=== PATIENT | female | born 1995 | race Caucasian/White ===

== ENCOUNTER → 2018-01-29 | Outpatient (CLI) | payer OTHER | END | disposition home or self-care (01) | LOC: C.PAPS 10:47 | PROVIDERS: ATTEND Family Medicine | DX: Z01.419 Encounter for gynecological examination (general) (routine) without abnormal findings (principal) ==

== ENCOUNTER 2024-05-31 22:01 | Inpatient (IN) ==
[2024-05-31] MEDS ORDERED: LIDOCAINE 1% LOCAL 20 ML VIAL INFIL PRN (22:54)
[2024-05-31] MEDS ORDERED: OXYTOCIN 30 UNITS/NSS 30 UNITS/500 ML BAG IV PRN (22:54)
--- NOTE | 2024-05-31 23:00 | History & Physical Report ---
Date of Service May 31, 2024 Assessment & Plan (1) SROM (spontaneous rupture of membranes): (2) GDM (gestational diabetes mellitus): (3) Obesity affecting : Plan 29 yo G1 at 39 3/7 wga presents w/ srom VSS Fetus cat 2 but reassuring, occ small variable Labor - will allow to walk to see if continues to progress spontaneously once fetus settles down/cat1 strip obtained. If unchanged, pt ameanble to pitocin A1GDM - q4hbg, q2 active GBS neg epidural prn History of Present Illness Chief Complaint: ROM Primary Care Provider: Rosie Merchant, DO 29 yo G1 at 39 3/7 wga presents w/ LOF since 8pm. +FM; denies regular ctx, VB. 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 denies hx stis Allergies Allergy/AdvReac Type Severity Reaction Status Date / Time Cephalosporins Allergy Unknown Verified 05/31/24 22:36 Home Medications Medication Instructions Recorded Confirmed Type blood sugar diagnostic (OneTouch #120 ea 04/29/24 05/25/24 Rx Verio test strips) blood-glucose meter (OneTouch #1 ea 04/29/24 05/25/24 Rx Verio Reflect Meter) lancets 33 gauge (OneTouch Delica #120 ea 04/29/24 05/25/24 Rx Plus Lancet) vitamins no.159-iron 1 tab PO DAILY 05/31/24 05/31/24 History fumarate 28 mg-folic acid 800 mcg tablet ( Vitamin) Patient History Medical History (Updated 05/31/24 @ 22:58 by Renata Yo MD) Oral contraceptive pill surveillance Surgical History History of wisdom tooth extraction Family History (Updated 10/19/23 @ 14:12 by Pippa Sierra RN) Mother Small cell lung cancer Uncle Lymphoma Denies family history of Ovarian cancer Prostate cancer Diabetes Myocardial infarction Breast cancer Colorectal cancer Hypertension Stroke Social History (Updated 10/19/23 @ 14:11 by Pippa Sierra, YOUSUF) Smoking Status: Never smoker Second Hand Exposure: No; Do You Dip or Chew Tobacco: No; Hx Alcohol Use: No Hx Substance Use: No Preferred Language: Maltese Communication Ability: Effective Hearing Ability: Normal Research And Development Specialist Required: No Beliefs That Will Affect Care: None marital status: marital status details: Grupo Ames [phone] Current Living Situation: Spouse Current Living Situation Comment: Lives with spouse and dog current occupational status: employed 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 How many Children do You have: 0 Other Information That Helps Us Care for You: No Feels Safe at Home: Yes Safety Concerns: Feels Safe At This Time Childhood Exposure to Second-Hand Smoke: Yes Dental Care, Regularly: Yes Seatbelt Use: always Sunscreen Use: Yes Assistive Devices: None Physical Exam Genitourinary: OB Exam Abdomen: + vertex and + estimated weight (7-8) Manual OB Exam: + cervical dilation 1 cm, + cervical effacement 70%, + station - 2 and + amniotic fluid (+nitrazine, pooling, ferning) OB Exam Monitor Tracing: + external FHT monitor used, + external uterine monitor used (q6-7) and + category II (150/mod/+accel/occ variables, reassuring) Results & Data Vital Signs (Past 12 Hours) Vital Signs Temp Pulse Resp BP 05/31/24 22:23 98.2 F 20 05/31/24 22:17 81 117/78 Laboratory Results OB Labs: Blood Type O Positive 10/27/23 Antibody Screen NEGATIVE 10/27/23 Hgb 10.5 g/dl (12.0-16.0) L 04/01/24 Hct 31.6 % (37.0-47.0) L 04/01/24 MCV 88.9 fL (80.0-100.0) 10/27/23 Plt Count 314 K/uL (130-400) 10/27/23 Rubella IgG Antibody Immune (Immune) 10/27/23 RPR Nonreactive (Nonreactive) 10/27/23 Treponema pallidum Ab Negative (Negative) 04/01/24 Hep Bs Antigen NON-REACTIVE (NON-REACTIVE) 10/27/23 Hepatitis C Ab (EIA) NON-REACTIVE (NON-REACTIVE) 10/27/23 HIV (1&2) Ag & Ab Conf NON-REACTIVE (NON-REACTIVE) 10/27/23 Glucose 1 Hr 50 gm 139 mg/dl (70-130) H 12/25/23 OB Optional Labs: Chlamydia trachomatis RNA Not Detected (NotDetected) 10/27/23 Neisseria gonorrhoeae RNA Not Detected (NotDetected) 10/27/23 Thyroid Stimulating Hormone (TSH) 2.678 uIu/ml (0.300-4.500) 08/21/23 Labs Reviewed: low risk [facility] nl 16 week 2 hr gtt--[facility] gbs neg Diagnostic Findings 05/20 EFW 55%, ant plac Coding Level of Care Code None Diagnoses SROM (spontaneous rupture of membranes) GDM (gestational diabetes mellitus) O24.419 Obesity affecting O99.210
[2024-05-31 23:32] LABS: Hematocrit (blood only) 34.1 % (37.0-47.0); Hemoglobin 11.6 g/dl (12.0-16.0); Mean Corpuscular Hemoglobin 30.3 pg (25.0-34.0); Mean Platelet Volume 11.7 fL (9.4-12.4); Platelet Count 200 K/uL (130-400); RDW Standard Deviation 45.4 fL (36.4-46.3); Red Blood Count 3.83 M/uL (4.20-5.40); White Blood Count 11.41 K/ul (4.8-10.8)
[2024-06-01] MEDS: LACTATED RINGER'S 1,000 ML IV SCH (02:41)
[2024-06-01] MEDS ORDERED: NALOXONE HCL 0.4 MG/1 ML VIAL/CARP IV PRN (03:13)
[2024-06-01] MEDS ORDERED: BUPIVACAINE 0.25% PF 30 ML VIAL EPI PRN (03:13)
[2024-06-01] MEDS ORDERED: fentaNYL citrate PF 100 MCG/2 ML VIAL EPI PRN (03:13)
[2024-06-01] MEDS ORDERED: ePHEDrine sulfate 50 MG/ML AMP IV PRN (03:13)
[2024-06-01] MEDS ORDERED: diphenhydrAMINE 50 MG/ML VIAL IV PRN (03:13)
[2024-06-01] MEDS ORDERED: SODIUM CHLORIDE 0.9% PF INJ 10 ML VIAL EPI PRN (03:13)
[2024-06-01] MEDS ORDERED: NALOXONE HCL 1 MG in SODIUM CHLORIDE 0.9% 1,000 ML IV PRN (03:13)
[2024-06-01] MEDS ORDERED: ONDANSETRON INJ 2 MG/ML 2 ML VIAL IV PRN (03:13)
[2024-06-01] MEDS ORDERED: LIDOCAINE 2% MPF LOCAL 5 ML VIAL EPI PRN (03:13)
[2024-06-01] MEDS ORDERED: ROPIVACAINE 0.5% PF 5 MG/ML 20 ML VIAL EPI PRN (03:13)
[2024-06-01] MEDS ORDERED: NALBUPHINE HCL INJ 10 MG/ML AMP IV PRN (03:13)
--- NOTE | 2024-06-01 03:16 | Anesthesiology Consultation ---
Date of Service June 01, 2024 Assessment & Plan (1) Encounter for pre-operative examination: Chart Review Chart Review: Patient NOT seen in Pre Admission Testing and Acceptable Risk for Labor Epidural Consults Requested none History Height/Weight Height: 5 ft 2 in Weight: 98.43 kg Allergies Allergy/AdvReac Type Severity Reaction Status Date / Time Cephalosporins Allergy Unknown Verified 05/31/24 22:36 Medications Home Medications Medication Instructions Recorded Confirmed Last Taken blood sugar diagnostic (OneTouch #120 ea 04/29/24 05/25/24 Unknown Verio test strips) blood-glucose meter (OneTouch #1 ea 04/29/24 05/25/24 Unknown Verio Reflect Meter) lancets 33 gauge (OneTouch Delica #120 ea 04/29/24 05/25/24 Unknown Plus Lancet) vitamins no.159-iron 1 tab PO DAILY 05/31/24 05/31/24 05/30/24 20:00 fumarate 28 mg-folic acid 800 mcg tablet ( Vitamin) Past Medical History Medical History (Updated 06/01/24 @ 03:16 by Alfonzo Tapia MD) Encounter for pre-operative examination Obesity affecting GDM (gestational diabetes mellitus) Oral contraceptive pill surveillance Exercise / Class Metabolic Activity II 4-5 Yardwork/Stairs/Walk up hill Past Family History Family History Mother Small cell lung cancer Uncle Lymphoma Denies family history of Ovarian cancer Prostate cancer Diabetes Myocardial infarction Breast cancer Colorectal cancer Hypertension Stroke Past Surgical History Surgical History History of wisdom tooth extraction Past Anesthesia History No Hx of Anesthesia Complications and No Family Hx of Anesthesia Complications Social History Smoking Status: Never smoker Do You Dip or Chew Tobacco: No Hx Alcohol Use: No Alcohol type: beer, wine and hard liquor Hx Substance Use: No Physical Exam Vital Signs Last Vital Signs Temp 36.8 C 06/01/24 01:32 Pulse 86 06/01/24 03:38 Resp 18 06/01/24 01:32 BP 93/58 L 06/01/24 03:38 Pulse Ox 100 06/01/24 03:34 Testing Laboratory Results 05/31/24 23:05 Blood Type Cancelled 05/31/24 23:05 Blood Type O Positive 05/31/24 23:05 Antibody Screen Cancelled 05/31/24 23:05 Antibody Screen NEGATIVE 05/31/24 23:05 06/01/24 01:39 POC Glucose 94
[2024-06-01] MEDS: fentaNYL citrate PF 100 MCG/2 ML VIAL EPI STA (03:40)
[2024-06-01] MEDS: LIDOCAINE 2%/EPINEPHRINE 1:200,000 20 ML PF EPI STA (03:40)
[2024-06-01] MEDS: BUPIVACAINE 0.25% PF 30 ML VIAL EPI STA (03:40)
[2024-06-01] MEDS: SODIUM CHLORIDE 0.9% PF INJ 10 ML VIAL EPI STA (03:41)
[2024-06-01] MEDS: fentANYL 2 MCG/ML BUPIVacaine 0.125%-NSS 100ML BAG EPI PRN (03:50)
[2024-06-01] MEDS: OXYTOCIN 30 UNITS/NSS 30 UNITS/500 ML BAG IV PRN ×2 (04:16→12:14)
[2024-06-01] MEDS: BUPIVACAINE 0.25% PF 30 ML VIAL ONE (04:47)
[2024-06-01] MEDS: SODIUM CHLORIDE 0.9% PF INJ 10 ML VIAL ONE (04:47)
[2024-06-01] MEDS: LIDOCAINE 2%/EPINEPHRINE 1:200,000 20 ML PF ONE (04:47)
[2024-06-01] MEDS: ePHEDrine sulfate 50 MG/ML AMP ONE (04:47)
[2024-06-01] MEDS: fentANYL 2 MCG/ML BUPIVacaine 0.125%-NSS 100ML BAG ONE (04:47)
[2024-06-01] MEDS: fentaNYL citrate PF 100 MCG/2 ML VIAL ONE (04:47)
--- NOTE | 2024-06-01 07:34 | Labor Progress Brief Note ---
Date of Service June 01, 2024 Subjective comfortable w/ epidural Assessment & Plan (1) SROM (spontaneous rupture of membranes): (2) GDM (gestational diabetes mellitus): (3) Obesity affecting : Plan 29 yo G1 at 39 3/7 wga presents w/ srom VSS Fetus cat 1 Labor - pit at 12, good progress. Continue augmentation A1GDM - q4hbg, q2 active GBS neg epidural in place Admission and Anticipated Discharge Date Admission Date: May 31, 2024 Physical Exam Genitourinary: Manual OB Exam: + cervical dilation (4-5), + cervical effacement 70% and + station -2 OB Exam Monitor Tracing: + external FHT monitor used, + external uterine monitor used (a4-6) and + category I (140/mod/+accel/-decel) Results & Data Vital Signs (Past 12 Hours) Vital Signs Temp Pulse Resp BP Pulse Ox 06/01/24 07:29 101 H 99 06/01/24 07:24 99 H 99 06/01/24 07:19 78 98 06/01/24 07:16 79 96/56 L 06/01/24 07:14 80 98 06/01/24 07:09 86 98 06/01/24 07:04 80 99 06/01/24 07:01 86 94/55 L 06/01/24 06:59 73 97 06/01/24 06:54 79 98 06/01/24 06:49 79 98 06/01/24 06:47 78 99/58 L 06/01/24 06:44 81 98 06/01/24 06:39 86 99 06/01/24 06:34 81 98 06/01/24 06:31 84 107/67 06/01/24 06:29 108 H 98 06/01/24 06:24 74 98 06/01/24 06:20 18 06/01/24 06:20 98.8 F 18 06/01/24 06:19 84 99 06/01/24 06:17 88 111/68 06/01/24 06:14 86 98 06/01/24 06:09 85 98 06/01/24 06:04 88 98 06/01/24 06:03 83 110/70 06/01/24 05:59 84 98 06/01/24 05:54 81 98 06/01/24 05:49 92 H 98 06/01/24 05:47 86 117/73 06/01/24 05:44 86 97 06/01/24 05:39 86 98 06/01/24 05:34 83 98 06/01/24 05:31 102 H 102/67 06/01/24 05:29 83 97 06/01/24 05:24 83 97 06/01/24 05:19 89 98 06/01/24 05:16 87 106/67 06/01/24 05:14 78 98 06/01/24 05:09 79 96 06/01/24 05:04 76 97 06/01/24 05:02 84 107/68 06/01/24 04:59 87 97 06/01/24 04:54 89 97 06/01/24 04:49 78 99 06/01/24 04:47 83 106/66 06/01/24 04:44 78 98 06/01/24 04:39 85 97 06/01/24 04:34 82 97 06/01/24 04:31 85 109/65 06/01/24 04:29 77 98 06/01/24 04:24 81 98 06/01/24 04:19 84 100 06/01/24 04:17 79 108/64 06/01/24 04:14 83 99 06/01/24 04:09 84 100 06/01/24 04:04 84 99 06/01/24 04:00 82 109/66 06/01/24 03:59 98.4 F 18 06/01/24 03:59 84 98 06/01/24 03:58 81 109/69 06/01/24 03:56 88 105/70 06/01/24 03:54 88 109/66 98 06/01/24 03:52 84 110/69 06/01/24 03:50 87 109/69 06/01/24 03:49 99 06/01/24 03:49 88 06/01/24 03:49 82 105/68 06/01/24 03:46 86 106/60 06/01/24 03:44 83 104/63 99 06/01/24 03:43 92 H 78/45 L 06/01/24 03:41 95 H 87/51 L 06/01/24 03:39 88 100 06/01/24 03:38 86 93/58 L 06/01/24 03:37 97 H 77/43 L 06/01/24 03:34 90 100 06/01/24 03:29 93 H 100 06/01/24 03:24 90 100 06/01/24 03:19 81 100 06/01/24 03:14 77 100 06/01/24 03:09 79 100 06/01/24 03:04 81 100 06/01/24 02:31 77 113/71 06/01/24 01:32 98.2 F 18 05/31/24 22:23 98.2 F 20 05/31/24 22:17 81 117/78 Coding Level of Care Code None Diagnoses SROM (spontaneous rupture of membranes) GDM (gestational diabetes mellitus) O24.419 Obesity affecting O99.210
--- NOTE | 2024-06-01 09:35 | Labor Progress Brief Note ---
Date of Service June 01, 2024 Subjective comfortable , bloody show Assessment & Plan (1) SROM (spontaneous rupture of membranes): Plan labor down for 30 min and then start pushing. anticipate . fht reassuring with variables with contractions. Admission and Anticipated Discharge Date Admission Date: May 31, 2024 Physical Exam Physical Exam: cx--c/c/+1 toco--q2-3 efm--140s with mod variability, variables with contractions Results & Data Vital Signs (Past 12 Hours) Vital Signs Temp Pulse Resp BP Pulse Ox 06/01/24 09:29 83 100 06/01/24 09:24 86 100 06/01/24 09:19 73 100 06/01/24 09:17 75 98/59 L 06/01/24 09:14 73 100 06/01/24 09:09 72 100 06/01/24 09:04 75 100 06/01/24 09:02 75 85/51 L 06/01/24 08:59 79 100 06/01/24 08:54 80 100 06/01/24 08:49 80 100 06/01/24 08:47 79 90/55 L 06/01/24 08:44 81 100 06/01/24 08:39 86 100 06/01/24 08:34 89 100 06/01/24 08:33 82 114/71 06/01/24 08:29 83 100 06/01/24 08:24 90 100 06/01/24 08:19 82 100 06/01/24 08:16 86 114/72 06/01/24 08:14 82 100 06/01/24 08:09 85 100 06/01/24 08:04 86 100 06/01/24 08:01 83 112/67 06/01/24 08:00 16 06/01/24 08:00 16 06/01/24 07:59 84 99 06/01/24 07:54 93 H 99 06/01/24 07:49 78 99 06/01/24 07:46 80 111/64 06/01/24 07:44 86 99 06/01/24 07:39 83 100 06/01/24 07:34 82 100 06/01/24 07:32 81 118/69 06/01/24 07:29 101 H 99 06/01/24 07:24 99 H 99 06/01/24 07:19 78 98 06/01/24 07:16 79 96/56 L 06/01/24 07:14 80 98 06/01/24 07:09 86 98 06/01/24 07:04 80 99 06/01/24 07:01 86 94/55 L 06/01/24 06:59 73 97 06/01/24 06:54 79 98 06/01/24 06:49 79 98 06/01/24 06:47 78 99/58 L 06/01/24 06:44 81 98 06/01/24 06:39 86 99 06/01/24 06:34 81 98 06/01/24 06:31 84 107/67 06/01/24 06:29 108 H 98 06/01/24 06:24 74 98 06/01/24 06:20 18 06/01/24 06:20 37.1 C 18 06/01/24 06:19 84 99 06/01/24 06:17 88 111/68 06/01/24 06:14 86 98 06/01/24 06:09 85 98 06/01/24 06:04 88 98 06/01/24 06:03 83 110/70 06/01/24 05:59 84 98 06/01/24 05:54 81 98 06/01/24 05:49 92 H 98 06/01/24 05:47 86 117/73 06/01/24 05:44 86 97 06/01/24 05:39 86 98 06/01/24 05:34 83 98 06/01/24 05:31 102 H 102/67 06/01/24 05:29 83 97 06/01/24 05:24 83 97 06/01/24 05:19 89 98 06/01/24 05:16 87 106/67 06/01/24 05:14 78 98 06/01/24 05:09 79 96 06/01/24 05:04 76 97 06/01/24 05:02 84 107/68 06/01/24 04:59 87 97 06/01/24 04:54 89 97 06/01/24 04:49 78 99 06/01/24 04:47 83 106/66 06/01/24 04:44 78 98 06/01/24 04:39 85 97 06/01/24 04:34 82 97 06/01/24 04:31 85 109/65 06/01/24 04:29 77 98 06/01/24 04:24 81 98 06/01/24 04:19 84 100 06/01/24 04:17 79 108/64 06/01/24 04:14 83 99 06/01/24 04:09 84 100 06/01/24 04:04 84 99 06/01/24 04:00 82 109/66 06/01/24 03:59 36.9 C 18 06/01/24 03:59 84 98 06/01/24 03:58 81 109/69 06/01/24 03:56 88 105/70 06/01/24 03:54 88 109/66 98 06/01/24 03:52 84 110/69 06/01/24 03:50 87 109/69 06/01/24 03:49 99 06/01/24 03:49 88 06/01/24 03:49 82 105/68 06/01/24 03:46 86 106/60 06/01/24 03:44 83 104/63 99 06/01/24 03:43 92 H 78/45 L 06/01/24 03:41 95 H 87/51 L 06/01/24 03:39 88 100 06/01/24 03:38 86 93/58 L 06/01/24 03:37 97 H 77/43 L 06/01/24 03:34 90 100 06/01/24 03:29 93 H 100 06/01/24 03:24 90 100 06/01/24 03:19 81 100 06/01/24 03:14 77 100 06/01/24 03:09 79 100 06/01/24 03:04 81 100 06/01/24 02:31 77 113/71 06/01/24 01:32 36.8 C 18 05/31/24 22:23 36.8 C 20 05/31/24 22:17 81 117/78 Coding Level of Care Code None Diagnoses SROM (spontaneous rupture of membranes)
--- NOTE | 2024-06-01 10:49 | Labor Progress Brief Note ---
Date of Service June 01, 2024 Subjective pushing Assessment & Plan (1) SROM (spontaneous rupture of membranes): Plan continue stage 2, good effort, fetus reassuring category two. Admission and Anticipated Discharge Date Admission Date: May 31, 2024 Physical Exam Physical Exam: cx--+1-2 toco-q2-3 efm--150s with mod variability, early/variable with pushing. Results & Data Vital Signs (Past 12 Hours) Vital Signs Temp Pulse Resp BP Pulse Ox 06/01/24 10:44 111 H 100 06/01/24 10:39 108 H 100 06/01/24 10:34 131 H 100 06/01/24 10:31 112 H 94/70 L 06/01/24 10:29 96 H 100 06/01/24 10:24 112 H 100 06/01/24 10:19 104 H 100 06/01/24 10:17 104 H 102/70 06/01/24 10:14 104 H 100 06/01/24 10:09 101 H 100 06/01/24 10:04 95 H 100 06/01/24 10:02 100 H 118/77 06/01/24 10:00 16 06/01/24 10:00 16 06/01/24 09:59 108 H 100 06/01/24 09:54 87 100 06/01/24 09:49 105 H 100 06/01/24 09:44 98 H 100 06/01/24 09:39 98 H 100 06/01/24 09:34 103 H 100 06/01/24 09:33 97 H 98/61 L 06/01/24 09:30 37.1 C 06/01/24 09:29 83 100 06/01/24 09:24 86 100 06/01/24 09:19 73 100 06/01/24 09:17 75 98/59 L 06/01/24 09:14 73 100 06/01/24 09:09 72 100 06/01/24 09:04 75 100 06/01/24 09:02 75 85/51 L 06/01/24 08:59 79 100 06/01/24 08:54 80 100 06/01/24 08:49 80 100 06/01/24 08:47 79 90/55 L 06/01/24 08:44 81 100 06/01/24 08:39 86 100 06/01/24 08:34 89 100 06/01/24 08:33 82 114/71 06/01/24 08:29 83 100 06/01/24 08:24 90 100 06/01/24 08:19 82 100 06/01/24 08:16 86 114/72 06/01/24 08:14 82 100 06/01/24 08:09 85 100 06/01/24 08:04 86 100 06/01/24 08:01 83 112/67 06/01/24 08:00 16 06/01/24 08:00 16 06/01/24 07:59 84 99 06/01/24 07:54 93 H 99 06/01/24 07:49 78 99 06/01/24 07:46 80 111/64 06/01/24 07:44 86 99 06/01/24 07:39 83 100 06/01/24 07:34 82 100 06/01/24 07:32 81 118/69 06/01/24 07:29 101 H 99 06/01/24 07:24 99 H 99 06/01/24 07:19 78 98 06/01/24 07:16 79 96/56 L 06/01/24 07:14 80 98 06/01/24 07:09 86 98 06/01/24 07:04 80 99 06/01/24 07:01 86 94/55 L 06/01/24 06:59 73 97 06/01/24 06:54 79 98 06/01/24 06:49 79 98 06/01/24 06:47 78 99/58 L 06/01/24 06:44 81 98 06/01/24 06:39 86 99 06/01/24 06:34 81 98 06/01/24 06:31 84 107/67 06/01/24 06:29 108 H 98 06/01/24 06:24 74 98 06/01/24 06:20 18 06/01/24 06:20 37.1 C 18 06/01/24 06:19 84 99 06/01/24 06:17 88 111/68 06/01/24 06:14 86 98 06/01/24 06:09 85 98 06/01/24 06:04 88 98 06/01/24 06:03 83 110/70 06/01/24 05:59 84 98 06/01/24 05:54 81 98 06/01/24 05:49 92 H 98 06/01/24 05:47 86 117/73 06/01/24 05:44 86 97 06/01/24 05:39 86 98 06/01/24 05:34 83 98 06/01/24 05:31 102 H 102/67 06/01/24 05:29 83 97 06/01/24 05:24 83 97 06/01/24 05:19 89 98 06/01/24 05:16 87 106/67 06/01/24 05:14 78 98 06/01/24 05:09 79 96 06/01/24 05:04 76 97 06/01/24 05:02 84 107/68 06/01/24 04:59 87 97 06/01/24 04:54 89 97 06/01/24 04:49 78 99 06/01/24 04:47 83 106/66 06/01/24 04:44 78 98 06/01/24 04:39 85 97 06/01/24 04:34 82 97 06/01/24 04:31 85 109/65 06/01/24 04:29 77 98 06/01/24 04:24 81 98 06/01/24 04:19 84 100 06/01/24 04:17 79 108/64 06/01/24 04:14 83 99 06/01/24 04:09 84 100 06/01/24 04:04 84 99 06/01/24 04:00 82 109/66 06/01/24 03:59 36.9 C 18 06/01/24 03:59 84 98 06/01/24 03:58 81 109/69 06/01/24 03:56 88 105/70 06/01/24 03:54 88 109/66 98 06/01/24 03:52 84 110/69 06/01/24 03:50 87 109/69 06/01/24 03:49 99 06/01/24 03:49 88 06/01/24 03:49 82 105/68 06/01/24 03:46 86 106/60 06/01/24 03:44 83 104/63 99 06/01/24 03:43 92 H 78/45 L 06/01/24 03:41 95 H 87/51 L 06/01/24 03:39 88 100 06/01/24 03:38 86 93/58 L 06/01/24 03:37 97 H 77/43 L 06/01/24 03:34 90 100 06/01/24 03:29 93 H 100 06/01/24 03:24 90 100 06/01/24 03:19 81 100 06/01/24 03:14 77 100 06/01/24 03:09 79 100 06/01/24 03:04 81 100 06/01/24 02:31 77 113/71 06/01/24 01:32 36.8 C 18 Coding Level of Care Code None Diagnoses SROM (spontaneous rupture of membranes)
[2024-06-01] MEDS: METHYLERGONOVINE MALEATE 0.2 MG/ML AMP IM STA (11:41)
[2024-06-01] MEDS ORDERED: bisacodyL 10 MG SUPP PR PRN (11:56)
[2024-06-01] MEDS ORDERED: HYDROCORTISONE ACETATE 25 MG SUPP PR PRN (11:56)
--- NOTE | 2024-06-01 12:01 | Delivery Summary ---
Vaginal Delivery Summary Date of Service June 01, 2024 Vaginal Delivery Summary and 3rd Degree LAC Pre-operative Diagnosis: at 39 4/7 weeks srom Post-operative Diagnosis: same shoulder dystocia third degree laceration Procedure: pitocin augmentation third degree laceration and repair QBL: 550 Anesthesia: epidural Procedure: The patient presented to labor and delivery with gross srom. Was allowed to walk and then pitocin was started. She received an epidural. She then progressed to c/c/+1. The patient pushed for around one hour to deliver a viable male in carrie position. A lloose nuchal cord was reduced easily. The head then showed a turtle sign and the a shoulder dystocia was identified. This lasted for less than 30 seconds and was reduced with flattening the bed, Vern maneuver, suprapubic pressure and turning the anterior shoulder to the maternal right. The anterior shoulder delivered and the rest of the body followed quickly. The nose and mouth were again bulb suctioned and the was placed in the maternal abdomen for drying and attention. Cord was clamped and cut at about one minute. Cord blood and segment obtained. Placenta delivered spontaneous, intact with a three vessel cord. Cervix/sulci/rectum were intact. A third degree perineal laceration was repaired in the normal standard fashion--3 sutures of 2-0 vicryl, and then the resultant second degree repaired with 3-0 vicryl. Hemostasis obtained with dilute pitocin and fundal massage, and IM methergine. Apgars were pending at the time of this note. Mother and baby doing well at the end of the delivery. [facility] Vaginal Delivery Charge Delivery Type Details: and 3rd Degree LAC
--- NOTE | 2024-06-01 15:40 | Anesthesia Procedure Note ---
Date of Service June 01, 2024 Anesthesia Post Epidural Note Vital Signs Vital Signs: Temp Pulse Resp BP Pulse Ox 37.1 C 106 H 18 116/61 100 06/01/24 09:30 06/01/24 15:31 06/01/24 11:00 06/01/24 15:31 06/01/24 11:49 Notes Mental Status: alert / awake / arousable Nausea / Vomiting: adequately controlled Pain: adequately controlled Airway Patency, RR, SpO2: stable & adequate BP & HR: stable & adequate Hydration State: stable & adequate Neuraxial Anesthesia: was administered and sensory block is resolving Anesthetic Complications: no major complications apparent and Pt Satisfied with anesthetic care Epidural: Removed without complications and With tip intact
[2024-06-01] MEDS: BENZOCAINE 20% SPRY 85 APPLN/85 GM CAN EXT PRN (16:00)
[2024-06-01] MEDS: IBUPROFEN 600 MG TAB PO PRN (16:03)
[2024-06-01] MEDS: ACETAMINOPHEN 325 MG TAB PO PRN (16:05)
[2024-06-01] MEDS: METHYLERGONOVINE MALEATE 0.2 MG/ML AMP ONE (16:08)
[2024-06-01 17:09] LABS: Hematocrit (blood only) 31.1 % (37.0-47.0); Hemoglobin 10.8 g/dl (12.0-16.0)
[2024-06-01] MEDS: DIPHTHER/TETAN/PERTUS Vaccine (Tdap, Adol/Adult) 0.5mL IM ONE (19:50)
[2024-06-01] MEDS: DOCUSATE SODIUM 100 MG CAP PO SCH (20:14)
--- NOTE | 2024-06-02 05:53 | Obstetrical Progress Note ---
Date of Service June 02, 2024 Assessment & Plan (1) Encounter for care and examination after delivery: Plan Encourage ambulation Encourage breast feeding, formula supplementation Consult as needed Monitor Hgb and symptoms of anemia Pain meds as needed Anticipate DC on 06/03/24 Admission and Anticipated Discharge Date Admission Date: May 31, 2024 Supervising Physician Co-Signing Physician Notes Resident Physician Supervision Note: I interviewed and examined the patient. Discussed with Dr. Faye and agree with findings and plan as documented in the note. Any exceptions or clarifications are listed here: Doing well. Has been able to ambulate. To reg diet. hgb from 10.8 post delivery to 8.7. continue routine ppd 1. Documented By: Pat Gibbons MD, FACOG Subjective Pt is 29 yo post- day 1 s/p at 39w3d. complicated by GDM and obesity. Ambulation:In room Voiding:voiding normally Passing gas: no BM: no Diet tolerance:regular diet Lochia:bloody, no clots Feeding type: breast and formula Current pain level: 3-4 /10 improved with positioning Resting comfortably this morning in NAD. Denies NICHOLSON, CP, SOB, N/V/D, LE pain/swelling. Review of Systems Review of Systems: As per HPI Physical Exam Constitutional: WD/WN, vitals as above Respiratory: normal respiratory effort, lungs clear to auscultation Cardiovascular: RRR, no murmur, no edema Gastrointestinal (Abdomen): normal bowel sounds, soft, nontender, no hepatosplenomegaly Uterine fundus firm and at level of umbilicus Neurologic: PERRL, EOMI, accommodation nl, no face palsy, no dysarthria Moving all 4 extremities on command Psychiatric: A+Ox3, euthymic affect Results & Data Vital Signs (Past 12 Hours) Vital Signs Temp Pulse Resp BP Pulse Ox O2 Del Method 06/02/24 04:00 36.6 C 79 16 94/61 L 99 Room Air 06/02/24 00:00 36.5 C 77 16 96/61 L 98 Room Air 06/01/24 20:10 36.5 C 92 H 18 100/68 99 Room Air Laboratory Results Hgb is 8.7 this morning Resident Activity Tracking Resident Involvement: Resident Care Provided Care Provided: Adult Hospital Medicine
[2024-06-02 06:21] LABS: Hematocrit (blood only) 25.4 % (37.0-47.0); Hemoglobin 8.7 g/dl (12.0-16.0); Mean Corpuscular Hemoglobin 30.1 pg (25.0-34.0); Mean Corpuscular Hgb Conc 34.3 g/dL (32.0-36.0); Mean Corpuscular Volume 87.9 fL (80.0-100.0); Mean Platelet Volume 11.7 fL (9.4-12.4); Platelet Count 161 K/uL (130-400); RDW Coefficient of Variation 14.2 % (11.5-14.5); RDW Standard Deviation 45.3 fL (36.4-46.3); Red Blood Count 2.89 M/uL (4.20-5.40); White Blood Count 15.12 K/ul (4.8-10.8)
[2024-06-02] MEDS: PRENATAL VITAMIN 1 TAB PO SCH (07:58)
[2024-06-02] MEDS ORDERED: [UNRECOGNIZED DRUG - REMARK] PO SCH (09:00)
[2024-06-02] MEDS: bisacodyL 5 MG TABEC PO SCH (20:19)
--- NOTE | 2024-06-03 05:42 | Obstetrical Progress Note ---
Date of Service June 03, 2024 Assessment & Plan (1) Encounter for care and examination after delivery: Plan Encourage ambulation Encourage breast feeding, formula supplementation Consult as needed Pain meds as needed Anticipate DC to home today Admission and Anticipated Discharge Date Admission Date: May 31, 2024 Supervising Physician Co-Signing Physician Notes Resident Physician Supervision Note: I was present with Dr. Faye during the history and exam. I discussed the case with the resident and agree with the findings and plan as documented in the note. Any exceptions or clarifications are listed here: PPD#2, doing well, DC instructions, 6w followup PP. Documented By: Mahi Betts, Subjective Pt is 29 yo post- day 2 s/p at 39w3d. complicated by GDM and obesity. Ambulation:In and out of room Voiding:voiding normally Passing gas: yes BM: yes Diet tolerance:regular diet Lochia:bloody, no clots Feeding type: breast and formula Current pain level: 2-3 /10 improved with positioning Resting comfortably this morning in NAD. Pt reports breast feeding is going much better. She continues with pain at her bottom, but has been out of bed more often. Denies NICHOLSON, CP, SOB, N/V/D, LE pain/swelling. Review of Systems Review of Systems: As per HPI Physical Exam Constitutional: WD/WN, vitals as above Respiratory: normal respiratory effort, lungs clear to auscultation Cardiovascular: RRR, no murmur, no edema Gastrointestinal (Abdomen): normal bowel sounds, soft, nontender, no hepatosplenomegaly Uterine fundus is firm and 1 cm below umbilicus Neurologic: PERRL, EOMI, accommodation nl, no face palsy, no dysarthria Psychiatric: A+Ox3, euthymic affect Results & Data Vital Signs (Past 12 Hours) Vital Signs Temp Pulse Resp BP Pulse Ox O2 Del Method 06/02/24 20:00 36.6 C 76 18 102/66 99 Room Air Resident Activity Tracking Resident Involvement: Resident Care Provided Care Provided: Adult Hospital Medicine
[2024-06-03 05:54] VITALS: O2SAT 98
[2024-06-03 06:41] LABS: Hematocrit (blood only) 25.6 % (37.0-47.0); Hemoglobin 8.6 g/dl (12.0-16.0)
[2024-06-03 08:11] VITALS: BP 109/70; PULSE 84; RESP 16; TEMP 97.5
== END 2024-06-03 10:24 | disposition home or self-care (01) | DRG 768 ==
LOC: OPB 22:01 → 4S1 22:02 → 4E2 06-01 17:20